=== PATIENT | female | born 2000 | race Caucasian/White ===

== ENCOUNTER 2024-05-29 00:02 | Emergency (ER) | payer BC, MEDICARE, SELFPAY ==
[2024-05-29 00:04] VITALS: BP 114/67
--- NOTE | 2024-05-29 00:26 | ED.GENMED ---
History of Present Illness
<Shamika White PA-C - Last Filed: 05/29/24 16:28>
General
Chief Complaint: Crisis Evaluation
Source: patient and family (Mother at bedside)
Exam Limitations: none
Time Seen by Provider: 05/29/24 00:16
Nursing documentation reviewed up to this point in time: agreed with
History of Present Illness
History of Present Illness:
24-year-old female with history of depression, PTSD presenting to the emergency department for suicidal ideations. Patient states that she has chronic passive SI although over the past few days she has been feeling increasing thoughts of harming
self. She states that she has plans of hanging herself. Patient denies any HI. Patient denies any auditory/visual hallucinations. Patient states that 'something happened earlier this week in her personal life 'but she refuses to discuss it.
Patient is seen by an outpatient crisis team including psychiatrist and therapist. She did have an appointment today that concerned her therapist for which a mobile crisis team was sent to her home. After their assessment it was recommended that
patient come to the emergency department or she would become a 302.
Past History
<Shamika White PA-C - Last Filed: 05/29/24 16:28>
Past History
ED Past Medical History: Psychiatric; Negative Asthma or Valvular disease
Social History
Tobacco: Non-smoker
Review of Systems
<Shamika White PA-C - Last Filed: 05/29/24 16:28>
Review of Systems
Allergies reviewed?: Yes
All Other Systems: ROS reviewed and negative except as documented in HPI and ROS
Phy Exam
<Shamika White PA-C - Last Filed: 05/29/24 16:28>
Physical Exam
Physical Exam:
Vitals: Patient's vital signs are stable. Afebrile
General: Patient in no acute distress.
Skin: Warm and dry, no rashes or lesions
Head: Normocephalic, atraumatic
Throat: Protecting airway
Neck: Normal ROM, no cervical spine tenderness
Cardiac: Regular rate and rhythm. Heart sounds normal
Pulm: No apparent respiratory distress. Lungs clear to auscultation bilaterally
Abdomen: Nondistended
Extremities: No evidence of cyanosis or edema
Neuro: Grossly intact
Psychiatric: Mildly flat affect. Cooperative and answers questions
Course
<Shamika White PA-C - Last Filed: 05/29/24 16:28>
Orders/Labs/Results
Orders:
Orders
05/29/24 00:09
1:1 Observation - Suicide/ Violent Behavior As Directed
Crisis Consult Urgent
Reason for Consult: suicidal ideation with plan
05/29/24 06:41
PSYCHIATRY CONSULT Urgent
Consulting Provider: Sandra Rouse
Was physician already notified: No
Reason for consult: Active SI; signifcant history; pending placement by crisis
05/29/24 06:43
Consult Notification Routine
Specialty to Notify: Psychiatry
05/29/24 09:49
Test Result ONCE
05/29/24 12:26
, Urine Qualitative Screen [HCG, Urine Qualitative Screen] Urgent
Date Specimen was Collected: 05/29/24
Time Specimen was Collected: 09:49
Urine Drug Abuse Screen Urgent
Date Specimen was Collected: 05/29/24
Time Specimen was Collected: 09:49
Abnormal Lab Results
05/29/24
12:26
U Marijuana (THC) Screen Positive H
(Negative)
Vital Signs
Initial and Last Documented VS:
Initial Vital Signs
Temp Pulse Resp BP Pulse Ox
98.2 F 82 16 114/67 96
05/29/24 00:04 05/29/24 00:04 05/29/24 00:04 05/29/24 00:04 05/29/24 00:04
Last Documented Vital Signs
Temp Pulse Resp BP Pulse Ox
98.7 F 65 20 101/62 98
05/29/24 09:53 05/29/24 09:53 05/29/24 09:53 05/29/24 09:53 05/29/24 09:53
<Man Purcell, - Last Filed: 05/29/24 01:42>
Orders/Labs/Results
Orders:
Orders
05/29/24 00:09
1:1 Observation - Suicide/ Violent Behavior As Directed
Crisis Consult Urgent
Reason for Consult: suicidal ideation with plan
05/29/24 06:41
PSYCHIATRY CONSULT Urgent
Consulting Provider: Sandra Rouse
Was physician already notified: No
Reason for consult: Active SI; signifcant history; pending placement by crisis
05/29/24 06:43
Consult Notification Routine
Specialty to Notify: Psychiatry
05/29/24 09:49
Test Result ONCE
05/29/24 12:26
, Urine Qualitative Screen [HCG, Urine Qualitative Screen] Urgent
Date Specimen was Collected: 05/29/24
Time Specimen was Collected: 09:49
Urine Drug Abuse Screen Urgent
Date Specimen was Collected: 05/29/24
Time Specimen was Collected: 09:49
Abnormal Lab Results
05/29/24
12:26
U Marijuana (THC) Screen Positive H
(Negative)
Vital Signs
Initial and Last Documented VS:
Initial Vital Signs
Temp Pulse Resp BP Pulse Ox
98.2 F 82 16 114/67 96
05/29/24 00:04 05/29/24 00:04 05/29/24 00:04 05/29/24 00:04 05/29/24 00:04
Last Documented Vital Signs
Temp Pulse Resp BP Pulse Ox
98.7 F 65 20 101/62 98
05/29/24 09:53 05/29/24 09:53 05/29/24 09:53 05/29/24 09:53 05/29/24 09:53
<Shamika White PA-C - Last Filed: 05/29/24 16:28>
MDM/Problems Addressed
Differential Diagnosis Includes:
Not limited to: Depression, SI
MDM/Problems Addressed:
Patient is a 24 year old female presenting with active suicidal ideations and worsening depression. Patient with history of this but noticed acute worsening over the past few days although does not want to talk about inciting event. No HI. No
visual/auditory hallucinations. Patient does have outpatient psychiatrist and therapist which she follows with. Patient is agreeable to inpatient treatment. Vital signs stable. Exam as above. Patient is cooperative, answering questions, with
mildly flat affect. No focal neurologic deficits. I do feel patient is an active threat to herself and will require inpatient treatment. Psychiatry consulted. Patient will be evaluated by crisis team for placement. Mom is at bedside. Dispo
pending crisis placement. Patient seen with attending physician.
Chronic conditions affecting care:
Depression, PTSD
Acute Exacerbation and/or Progression of Chronic Illness:
Acutely suicidal
<Shamika White PA-C - Last Filed: 05/29/24 16:28>
*Pulse Oximetry
Patient hypoxic: no
*EKG
Interpreted by ED Provider?: NA
*Final Application Reviewer Interpretation
Rate: Final Application Reviewer- N/A
*Critical Care Note
Total Time (30-74mins, 75-104mins- exclusive of procedures): Not Applicable
<STARR Wiley Last Filed: 05/29/24 16:28>
Patient Management
Discussion with other providers: Other (Crisis)
ED Attending Note
<Shamika White PA-C - Last Filed: 05/29/24 16:28>
-
Portions of this chart may have been created with voice recognition software.� Occasional wrong word or��sound alike� substitutions may have occurred due to the inherent limitations of voice recognition software.
<Man Purcell DO - Last Filed: 05/29/24 01:42>
ED Attending Note
Patient seen and examined by attending physician: Yes
I performed the substantive portion of visit, reviewed & personally made and approve the management plan that is documented in note by myself or CHANA.: Yes
ED Attending Note:
24-year-old female who presents with progression of depression and suicidal thoughts. She has had some minor thoughts of suicide the past but they had more specific plan that was driven by some event. She declines to share what triggered this.
She is agreeable to inpatient care. Exam: Awake and alert, grossly normal affect., No respiratory distress. Assessment and plan: Being evaluated by crisis for placement. Mom at bedside
Discharge Plan
Departure
Patient Disposition: Psych Facility
Date of Disposition: 05/29/24
Time of Disposition: 02:43
Patient with high blood pressure during this ER visit?: No
Discharge Problem:
Suicidal ideation
Instructions: Depression, Adult ED
Activity Restrictions/Additional Instructions:
RETURN TO THE EMERGENCY DEPARTMENT WITH ANY THOUGHTS OF HARMING YOURSELF OR HARMING OTHERS OR ANY OTHER CONCERNS
-Continue to take all your medications as prescribed.
Interventions
Interventions:
*Risk Screen - Suicide Last Done: 05/29/24 00:04
*General Assessment Last Done: 05/29/24 00:44
*Neglect/Abuse Screening Last Done: 05/29/24 00:04
ED- Fall Risk Assessment Last Done: 05/29/24 00:44
*ED COVID-19 Vaccine History Last Done: 05/29/24 00:04
*Nursing Disposition Last Done: 05/29/24 15:32
ED-Psychological Assessment Last Done: 05/29/24 00:44
Discharge Date and Time
Discharge Date/Time: 05/29/24 15:33
Print Language: NEPALI
[2024-05-29 00:44] VITALS: BMI 20.1
[2024-05-29 02:00] VITALS: BP 91/58
[2024-05-29 09:53] VITALS: BP 101/62
[2024-05-29 12:52] LABS: HCG, Urine Qualitative Screen Negative
[2024-05-29 12:59] LABS: Amphetamines Negative (Negative); Barbiturates Negative (Negative); Benzodiazepines Negative (Negative); Buprenorphine Negative (Negative); Cocaine Negative (Negative); Marijuana Positive (Negative); Methadone Negative (Negative); Methamphetamines Negative (Negative); Opiates Negative (Negative); Phencyclidine Negative (Negative); Tricyclic Antidepressants Negative (Negative)
== END 2024-05-29 15:33 ==
LOC: EMR 00:02
PROVIDERS: Physician Assistant; CONSULT PHYSICIAN Psychiatry & Neurology Psychiatry; EMERGENCY PHYSICIAN Emergency Medicine
DX: R45.851 Suicidal ideations (principal); F32.A Depression, unspecified; F43.10 Post-traumatic stress disorder, unspecified
CPT/HCPCS: 99282; 80306; 81025